=== PATIENT | male | born 2000 | race Hispanic/Latino ===

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

== ENCOUNTER 2023-11-06 08:50 | Emergency (ER) | payer MEDICAID, OTHER ==
[~2023-11-06] VITALS: Ht 172.7 cm; Wt 90.7 kg
[2023-11-06] MEDS ORDERED: IBUP-2076 PO (10:49)
[2023-11-06 11:08] VITALS: BP 143/79; PULSE 89; RESP 18; O2SAT 99
== END 2023-11-06 11:09 | disposition home or self-care (01) ==
LOC: EDH 08:50
DX: S62.334A Displaced fracture of neck of fourth metacarpal bone, right hand, initial encounter for closed fracture (principal); X58.XXXA Exposure to other specified factors, initial encounter; Y93.89 Activity, other specified; Y92.89 Other specified places as the place of occurrence of the external cause; Y99.8 Other external cause status
CPT/HCPCS: 29125; 73130